=== PATIENT | male | born 2000 | race Caucasian/White ===

== ENCOUNTER 2021-09-28 12:19 | Emergency (ER) | payer OTHER, BC ==
--- NOTE | 2021-09-28 13:17 | CR ---
[id number] RAD/RAD Shoulder Left 2V Min EXAM: RAD Shoulder Left 2V Min INDICATION: SHOULDER PAIN, STATES WAS DISLOCATED AND REDUCED. COMPARISON: None. DISCUSSION: Mild acromioclavicular osteoarthritis. Possible tiny fracture off the superior margin of the humeral head adjacent to the greater tuberosity best seen on the externally rotated view. Normal alignment. IMPRESSION: 1. Possible small osteochondral fracture superior humeral head. Elmer Cooper MD 09/28/21 [id number] Thank you for allowing us to participate in the care of your patient.
--- NOTE | 2021-09-28 14:25 | EDM.PDOC ---
ED HPI GENERAL MEDICAL PROBLEM - General Chief Complaint: Upper Extremity Injury/Pain Time Seen by Provider: 09/28/21 12:25 Source of Information: Reports: Patient History Limitations: Reports: No Limitations - History of Present Illness INITIAL COMMENTS - FREE TEXT/NARRATIVE: Pt. presents to ER with complaints of L shoulder pain. He states that he fell at 0200 this AM, dislocating his shoulder. He states that his friend reduced it for him. He states that he has problems lifting his arm above his head and presented to ER for evaluation. He states that he does not want to do PT locally as he will be going home to [place] for the holidays. - Related Data Allergies Allergy/AdvReac Type Severity Reaction Status Date / Time No Known Allergies Allergy Verified 09/28/21 12:34 Home Meds: Home Meds . [No Known Home Meds] 09/28/21 [History] Past Medical History - Past Health History Medical/Surgical History: Denies Medical/Surgical History Social & Family History - Tobacco Use Tobacco Use Status *Q: Never Tobacco User Review of Systems - Review of Systems Review Of Systems: See Below ED EXAM, GENERAL - Physical Exam Exam: See Below Extremities: Other (Increased pain, painful arc test, empty can test +) Course - Vital Signs Last Recorded V/S: Last Vital Signs Temp 36.3 C 09/28/21 12:25 Pulse 105 H 09/28/21 12:25 Resp 18 09/28/21 12:25 BP 148/94 H 09/28/21 12:25 Pulse Ox 99 09/28/21 12:25 Departure - Departure Time of Disposition: 13:30 Disposition: Home, Self-Care 01 Clinical Impression: Rotator cuff injury - Discharge Information Instructions: Traumatic Shoulder Instability Rehab Referrals: PCP,Not In Area [Primary Care Provider] - Forms: ED Department Discharge Additional Instructions: I am concerned you have torn your rotator cuff. There is a possible small area of fracture to the big bone in your arm. You may need to have an MRI if your shoulder is not gradually improving. Do the exercises that are highlighted in your discharge paperwork. Use sling for 10 days for support. Ibuprofen 200mg 3 tabs every 6 hours as needed for pain. Sepsis Event Note (ED) - Focused Exam Vital Signs: Vital Signs Temp Pulse Resp BP Pulse Ox 09/28/21 12:25 36.3 C 105 H 18 148/94 H 99 - Problem List Review Problem List Initiated/Reviewed/Updated: Yes - Assessment/Plan Plan: I am concerned you have torn your rotator cuff. There is a possible small area of fracture to the big bone in your arm. You may need to have an MRI if your shoulder is not gradually improving. Do the exercises that are highlighted in your discharge paperwork. Use sling for 10 days for support. Ibuprofen 200mg 3 tabs every 6 hours as needed for pain.
== END 2021-09-28 13:35 | disposition home or self-care (01) ==
LOC: VM.ED 12:19
DX: S46.001A Unspecified injury of muscle(s) and tendon(s) of the rotator cuff of right shoulder, initial encounter (principal); W01.0XXA Fall on same level from slipping, tripping and stumbling without subsequent striking against object, initial encounter
CPT/HCPCS: 73030-LT; 99283; 99283-25